=== PATIENT | male | born 1960 | race Caucasian/White ===

== ENCOUNTER 2021-09-06 10:04 | Emergency (ER) | payer OTHER ==
[2021-09-06] MEDS ORDERED: NORCO 5-325 TA1 EACH PO (12:27)
== END 2021-09-06 13:15 | disposition home or self-care (01) ==
LOC: FER 10:04
DX: T16.1XXA Foreign body in right ear, initial encounter (principal); H72.91 Unspecified perforation of tympanic membrane, right ear; Z28.310 Unvaccinated for COVID-19
CPT/HCPCS: J1885